=== PATIENT | male | born 1975 | race Caucasian/White ===

== ENCOUNTER 2017-07-30 12:48 | Emergency (ER) | payer OTHER ==
[~2017-07-30] VITALS: Ht 180.3 cm; Wt 75.4 kg
[2017-07-30 12:53] VITALS: TEMP 36.4; Ht 180.3 cm; Wt 75.4 kg
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
[2017-07-30] MEDS ORDERED: OXYCODONE HCL IR 5 MG TAB (IMMEDIATE RELEASE) PO STA (13:04)
[2017-07-30] MEDS ORDERED: IBUPROFEN 600 MG TAB PO STA (13:04)
[2017-07-30] MEDS ORDERED: XYLOCAINE 1%/SOD BICARB 20 ML VIAL INFIL ONE (13:10)
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
[2017-07-30] MEDS ORDERED: RISP3TAB12 PO (14:06)
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
[2017-07-30 14:45] VITALS: BP 126/72; PULSE 77; O2SAT 97
== END 2017-07-30 14:58 | disposition home or self-care (01) ==
LOC: EDBD 12:50 → C.EDB 12:50
DX: S63.115A Dislocation of metacarpophalangeal joint of left thumb, initial encounter (principal); Y04.0XXA Assault by unarmed brawl or fight, initial encounter; Y92.149 Unspecified place in prison as the place of occurrence of the external cause; Z83.3 Family history of diabetes mellitus; Z79.899 Other long term (current) drug therapy